=== PATIENT | female | born 1940 | race Caucasian/White ===

== ENCOUNTER 2016-10-29 22:20 | Emergency (ER) | payer OTHER ==
[~2016-10-29] VITALS: Ht 162.6 cm; Wt 87.0 kg
[~2016-10-29 22:20] MED LIST: ASPI81TA11 PO; ATOR40TA49 PO; COQ-100C5 PO; HYDR-3129 PO; LISI-360 PO; PRED20 PO; SERT-129 PO; VITA10004 PO; VITATAB25 PO
[2016-10-29 22:25] VITALS: BP 141/73; PULSE 89; RESP 18; TEMP 98.1; O2SAT 97
[2016-10-29] MEDS ORDERED: COQ1200C (22:38)
[2016-10-29] MEDS ORDERED: CHOL100025 CHEW (22:38)
[2016-10-29] MEDS ORDERED: VITA10002 PO (22:38)
[2016-10-29] MEDS ORDERED: LISI10TA3 PO (22:38)
[2016-10-29] MEDS ORDERED: SERT-129 PO (22:38)
[2016-10-29] MEDS ORDERED: ATOR40TA16 PO (22:38)
[2016-10-29] MEDS ORDERED: GABA100C4 PO (22:38)
[2016-10-29] MEDS ORDERED: ASPI-110 PO (22:38)
[2016-10-29] MEDS ORDERED: PROPARACAINE HCL 0.5% OPHT SOLN 15 ML BTL EACH EYE ONE (23:00)
--- NOTE | 2016-10-29 23:03 | PD ---
HPI Chief Complaint: Eye Problems/Injury Time Seen by Provider: 22:41 Travel History International Travel<30 days: No Contact w/Intl Traveler<30days: No Traveled to known affect area: No History of Present Illness HPI 76-year-old female complains of left eye irritation. Patient accidentally put some superglue to left eye this evening. Patient denies any other injury. Patient denies any change in vision. Patient states that she has persistent left eye irritation. Patient denies any tearing from the eyes. PFSH Past Medical History Depression: Yes Cancer: No Cardiovascular Problems: No High Cholesterol: Yes Diabetes: No Diminished Hearing: No Glaucoma: No Hepatitis: No Hiatal Hernia: No Hypertension: Yes Medical other: No Respiratory: No Immunizations Current: Yes Thyroid Disease: No Tetanus Vaccination: Unknown Influenza Vaccination: No ?: Not Menopausal: Yes Past Surgical History Abdominal Surgery: Yes (CIPRIANO) Eye Surgery: Yes (CATARACT SX BILATERAL) Gynecologic Surgery: Yes (HYSTERECTOMY) Hysterectomy: Yes Joint Replacement: Yes (rt hip replacement) Pacemaker: No Other Surgery: Yes Social History Alcohol Use: No Tobacco Use: Yes (07/06 PPD) Substance Use: No Allergies-Medications (Allergen,Severity, Reaction): Coded Allergies: No Known Allergies (Verified , 10/29/16) Reported Meds & Prescriptions Reported Meds & Active Scripts Active Reported Sertraline (Sertraline HCl) 100 Mg Tab 100 Mg PO DAILY Vitamin D3 (Cholecalciferol) 1,000 Unit Chew 1,000 Units CHEW DAILY Aspirin 81 (Aspirin) 81 Mg Tabdr 81 Mg PO DAILY Coq10 (Coenzyme Q10 (Ubidecarenone)) 200 Mg Cap Vitamin B-12 (Cyanocobalamin) 1,000 Mcg Tab 1,000 Mcg PO DAILY Gabapentin 100 Mg Cap 100 Mg PO BID Lisinopril 10 Mg Tab 10 Mg PO DAILY Atorvastatin (Atorvastatin Calcium) 40 Mg Tab 40 Mg PO HS Review of Systems General / Constitutional: No: Fever Eyes: Positive: Pain, No: Visual changes HENT: No: Headaches Cardiovascular: No: Chest Pain or Discomfort Respiratory: No: Shortness of Breath Gastrointestinal: No: Abdominal Pain Genitourinary: No: Dysuria Musculoskeletal: No: Pain Skin: No Rash Neurologic: No: Weakness Psychiatric: No: Depression Endocrine: No: Polydipsia Hematologic/Lymphatic: No: Easy Bruising Physical Exam Narrative GENERAL: Well-nourished, well-developed patient. SKIN: Focused skin assessment warm/dry. HEAD: Normocephalic. EYES: No scleral icterus. No injection or drainage. Patient has a small area of glue still on the upper eyelid near the margin. The left eye was stained with with fluorescein stain reveals no uptake. No foreign body noted. Upper eyelids and lower eyelids inverted and reveals no foreign body noted. NECK: Supple, trachea midline. No JVD or lymphadenopathy. CARDIOVASCULAR: Regular rate and rhythm without murmurs, gallops, or rubs. RESPIRATORY: Breath sounds equal bilaterally. No accessory muscle use. GASTROINTESTINAL: Abdomen soft, non-tender, nondistended. MUSCULOSKELETAL: No cyanosis, or edema. BACK: Nontender without obvious deformity. No CVA tenderness. Data Data Last Documented VS Vital Signs Date Time Temp Pulse Resp B/P Pulse Ox O2 Delivery O2 Flow Rate FiO2 10/29/16 22:40 87 18 10/29/16 22:25 98.1 141/73 97 Orders Proparacaine 0.5% Opth Soln (Alcaine 0.5 (10/29/16 23:00) MDM Medical Decision Making Medical Screen Exam Complete: Yes Emergency Medical Condition: Yes Differential Diagnosis Differential diagnosis including eye irritation, foreign body, corneal abrasion. Narrative Course 76-year-old female with accidental exposure to superglue to the left eye. Diagnosis Primary Impression: Irritation of left eye Additional Instructions: Follow with track repair person as needed. Return if persistent problem or worse. Med/Other Pt SpecificInfo: No Change to Meds Disposition: 01 DISCHARGE HOME Condition: Stable Liban Vila MD Oct 29, 2016 23:03
== END 2016-10-29 23:11 | disposition home or self-care (01) ==
LOC: PHED 22:20
DX: H57.8 Other specified disorders of eye and adnexa (principal)
CPT/HCPCS: 99283